=== PATIENT | male | born 1990 | race Caucasian/White ===

== ENCOUNTER 2020-11-17 15:12 | Emergency (ER) | payer SELFPAY ==
--- NOTE | 2020-11-17 15:34 | ED Physician Documentation ---
PD HPI MALE - Stated complaint Stated Complaint: MALE - Chief complaint Chief Complaint: General - History obtained from History obtained from: Patient - History of Present Illness Timing - onset: How many days ago (5-6) Timing - duration: Days (5-6) Timing - details: Gradual onset (onset of fullness and tender rectally with stools. He noted some blood with wiping. He states 4 days ago the pain increased and then had "blow out" of blood after he had BM. Changed to liquid diet for softer stool. Still red blood after soft BM. Here for eval.), Still present Associated symptoms: Other (rectal pain and BRBPR after stool) Similar symptoms before: Diagnosis (has had hemorrhoids in the past but usually improve in couple days with wipes and soaks. Has not had bleeding like this nor duration.) Recently seen: Not recently seen Review of Systems Constitutional: denies: Fever, Chills Nose: denies: Rhinorrhea / runny nose, Congestion Throat: denies: Sore throat Respiratory: denies: Cough GI: reports: Bloody / black stool (bright red blood after stool). denies: Abdominal Pain, Constipation, Diarrhea Neurologic: denies: Generalized weakness, Near syncope PD PAST MEDICAL HISTORY - Past Medical History Cardiovascular: None Respiratory: None Neuro: None Endocrine/Autoimmune: None GI: Hemorrhoids - Present Medications Home Medications: Ambulatory Orders Medication Instructions Recorded Confirmed Hydrocortisone Acetate 25 mg RC DAILY 5 Days #5 supp.rect 11/17/20 Lidocaine Ointment 5% [Xylocaine 1 applic TOP QID PRN #35.44 gm 11/17/20 Ointment 5%] - Allergies Allergies/Adverse Reactions: Allergies Allergy/AdvReac Type Severity Reaction Status Date / Time ibuprofen Allergy Respiratory Verified 11/17/20 15:32 PD ED PE NORMAL - Vitals Vital signs reviewed: Yes - General General: Alert and oriented X 3, No acute distress, Well developed/nourished - Abdomen Abdomen: Soft, Non tender - Male Male : Deferred - Rectal Rectal: Other (external hemorrhoids inflammated but not bleeding, not thrombosed, mild tender. Digital exam with some internal hemorrhoids but not feeling thrombosed, but are more tender. Scant red blood on fingertip. ) - Back Back: No CVA TTP - Derm Derm: Normal color, Warm and dry Results - Vitals Vitals: Oxygen O2 Source Room air PD MEDICAL DECISION MAKING - ED course Complexity details: considered differential (some external hemorrhoids, not thrombosed, no bleeding currently. Internal hemorrhoids present and these have some blood on finger exam. No perirectal swelling. No infection appearance of hemorrhoid. ), d/w patient Departure - Departure Disposition: 01 Home, Self Care Clinical Impression: Bleeding hemorrhoids Condition: Stable Record reviewed to determine appropriate education?: Yes Instructions: ED Hemorrhoids Follow-Up: Sanju Zendejas MD [Provider Admit Priv/Credential] - Prescriptions: Hydrocortisone Acetate 25 mg RC DAILY 5 Days #5 supp.rect Lidocaine Ointment 5% [Xylocaine Ointment 5%] 1 applic TOP QID PRN #35.44 gm PRN Reason: Pain Comments: Continue with soft food and/or a mild stool softener so you have softer stools. You do not have to have a completely liquid diet. Use the hydrocortisone suppository daily for 5 more days to decrease inflammation of the area. Follow-up with general surgery regarding local treatment of the hemorrhoids subsequently. They typically do not do any interventions when they are inflamed anyway so treating it now is good. Tylenol or ibuprofen if needed for pains. You can use topical lidocaine if needed for discomfort on the hemorrhoid area. Forms: Activity restrictions Discharge Date/Time: 11/17/20 16:36
[2020-11-17] MEDS ORDERED: HYDROCORTISONE 25 MG SUPPOSITORY PR STA (16:04)
[2020-11-17 16:29] VITALS: BP 121/74
== END 2020-11-17 16:36 | disposition home or self-care (01) ==
LOC: ED 15:12
DX: K64.8 Other hemorrhoids (principal); K64.4 Residual hemorrhoidal skin tags
CPT/HCPCS: 99282; 99284; J3490